=== PATIENT | female | born 1965 | race Caucasian/White ===

== ENCOUNTER 2023-07-09 16:11 | Emergency (ER) | payer SELFPAY ==
[~2023-07-09] VITALS: Ht 162.6 cm; Wt 75.0 kg
[2023-07-09 16:20] VITALS: O2SAT 98
[2023-07-09] MEDS ORDERED: metformin (16:28)
[2023-07-09] MEDS ORDERED: insulin (16:28)
[2023-07-09] MEDS ORDERED: KETOROLAC 60MG/2ML VIAL IM STA (19:15)
[2023-07-09] MEDS ORDERED: NAPR-681 MT (19:28)
[2023-07-09] MEDS ORDERED: HYDR-4001 MT (19:28)
[2023-07-09 20:44] VITALS: BP 126/72; PULSE 80; RESP 20; TEMP 98.2
== END 2023-07-09 20:44 | disposition home or self-care (01) ==
LOC: ER 16:11
DX: S82.491A Other fracture of shaft of right fibula, initial encounter for closed fracture (principal); E11.9 Type 2 diabetes mellitus without complications; Z88.5 Allergy status to narcotic agent; W18.39XA Other fall on same level, initial encounter; Y93.61 Activity, american tackle football; Y92.89 Other specified places as the place of occurrence of the external cause; Y99.8 Other external cause status
CPT/HCPCS: 73610; 29515; 96372; 99283; J1885; Z7610 ×5